=== PATIENT | female | born 1955 | race Caucasian/White ===

== ENCOUNTER 2022-03-11 13:58 | Outpatient (CLI) | payer OTHER, SELFPAY | END 2022-03-11 13:59 | disposition home or self-care (01) | LOC: WOUND 13:59 | PROVIDERS: Visit Provider Nurse Practitioner Family | DX: T81.31XA Disruption of external operation (surgical) wound, not elsewhere classified, initial encounter (principal); E11.22 Type 2 diabetes mellitus with diabetic chronic kidney disease | CPT/HCPCS: 97597 ==

== ENCOUNTER 2022-03-18 14:31 | Outpatient (CLI) | payer OTHER, SELFPAY | END 2022-03-18 14:32 | disposition home or self-care (01) | LOC: WOUND 14:31 | PROVIDERS: Visit Provider Nurse Practitioner Family | DX: T81.31XA Disruption of external operation (surgical) wound, not elsewhere classified, initial encounter (principal); E11.22 Type 2 diabetes mellitus with diabetic chronic kidney disease; N18.9 Chronic kidney disease, unspecified | CPT/HCPCS: 99213 ==

== ENCOUNTER 2022-04-01 13:03 | Outpatient (CLI) | payer OTHER, SELFPAY | END 2022-04-01 13:04 | disposition home or self-care (01) | LOC: WOUND 13:04 | PROVIDERS: Visit Provider Nurse Practitioner Family | DX: T81.32XA Disruption of internal operation (surgical) wound, not elsewhere classified, initial encounter (principal); E11.22 Type 2 diabetes mellitus with diabetic chronic kidney disease; N18.9 Chronic kidney disease, unspecified; T81.31XA Disruption of external operation (surgical) wound, not elsewhere classified, initial encounter | CPT/HCPCS: 97602; 99213 ==